=== PATIENT | male | born 1980 | race Caucasian/White ===

== ENCOUNTER 2017-07-09 09:12 | Inpatient (IN) | payer OTHER ==
[2017-07-09 11:47] VITALS: BMI 33.5
--- NOTE | 2017-07-09 14:20 | HP ---
CIWA Score - CIWA Score Nausea/Vomitin-Mild Nausea/No Vomiting Muscle Tremors: 4-Moderate,w/Arms Extend Anxiety: 3 Agitation: 2 Paroxysmal Sweats: 3 Orientation: 0-Oriented Tacttile Disturbances: 0-None Auditory Disturbances: 0-None Visual Disturbances: 0-None Headache: 3-Moderate CIWA-Ar Total Score: 16 Admission ROS S - HPI Chief Complaint: "I'm here to try to get myself together." Pt. is here to Detox from Alcohol. Allergies/Adverse Reactions: Allergies Allergy/AdvReac Type Severity Reaction Status Date / Time No Known Allergies Allergy Verified 07/09/17 12:28 History of Present Illness: Pt. is a 37 YO male here to Detox from Alcohol. Pt. also reports using Cannabis , Crack Cocaine, and K2 on a daily basis. Pt. has had 1 previous Detox admission at [facility] in 2008 and 1 previous Detox admission at [facility] ([place], [place] ) in 2009. Exam Limitations: No Limitations - Ebola screening Have you traveled outside of the country in the last 21 days: No Have you had contact with anyone from an Ebola affected area: No Have you been sick,other than usual withdrawal symptoms: No Do you have a fever: No - Review of Systems Constitutional: Chills, Diaphoresis, Fever, Loss of Appetite, Malaise EENT: reports: Nose Congestion, Sinus Pressure Respiratory: reports: Shortness of Breath, Productive cough Cardiac: reports: No Symptoms Reported GI: reports: Nausea, Vomiting : reports: No Symptoms Reported Musculoskeletal: reports: No Symptoms Reported Integumentary: reports: No Symptoms Reported Neuro: reports: Tremors Endocrine: reports: No Symptoms Reported Hematology: reports: No Symptoms Reported Psychiatric: reports: Judgement Intact, Mood/Affect Appropiate, Orientated x3, Depressed Other Systems: Reviewed and Negative Patient History - Patient Medical History Hx Anemia: No Hx Asthma: Yes (Uses Albuterol Inhaler.) Hx Chronic Obstructive Pulmonary Disease (COPD): No Hx Cancer: No Hx Cardiac Disorders: No Hx Congestive Heart Failure: No Hx Hypertension: No Hx Hypercholesterolemia: No Hx Pacemaker: No HX Cerebrovascular Accident: No Hx Seizures: No Hx Dementia: No Hx Diabetes: No Hx Gastrointestinal Disorders: No Hx Liver Disease: No Hx Genitourinary Disorders: No Hx Sexually Transmitted Disorders: No Hx Renal Disease (ESRD): No Hx Thyroid Disease: No Hx Human Immunodeficiency Virus (HIV): No (Last Tested: 03/2017: NEGATIVE.) Hx Hepatitis C: No (Never Tested. Pt. declines Testing this admission visit.) Hx Depression: Yes (No treatment in past.) Hx Suicide Attempt: Yes (cut right arm with a razor in 11/2015) Hx Bipolar Disorder: Yes (On meds.) Hx Schizophrenia: Yes (On meds.) Other Medical History: Declines. - Patient Surgical History Past Surgical History: No Hx Neurologic Surgery: No Hx Cataract Extraction: No Hx Cardiac Surgery: No Hx Lung Surgery: No Hx Breast Surgery: No Hx Breast Biopsy: No Hx Abdominal Surgery: No Hx Appendectomy: No Hx Cholecystectomy: No Hx Genitourinary Surgery: No Hx Section: No Hx Orthopedic Surgery: No Anesthesia Reaction: No - PPD History Previous Implant?: Yes Documented Results: Negative w/o proof PPD to be Administered?: Yes - Reproductive History Patient is a Female of Child Bearing Age (11 -55 yrs old): No (PATIENT IS MALE.) - Smoking Cessation Smoking history: Current every day smoker Have you smoked in the past 12 months: Yes Aproximately how many cigarettes per day: 20 Cigars Per Day: 0 Hx Chewing Tobacco Use: No Initiated information on smoking cessation: Yes 'Breaking Loose' booklet given: 07/09/17 (GIVEN ON UNIT.) - Substance & Tx. History Hx Alcohol Use: Yes Hx Substance Use: Yes Substance Use Type: Alcohol, Cocaine, Marijuana Hx Substance Use Treatment: Yes (Previous Detox admissions at [facility] ([place], [place] 2009; [facility], 2009.) - Substances Abused Crack Route: Smoking Frequency: Daily Amount used: $100 Age of first use: 23 Date of Last Use: 07/08/17 Alcohol-vodka/beer Route: Oral Frequency: Daily Amount used: 2 pts./1-2 6 pks. Age of first use: 16 Date of Last Use: 07/08/17 Marijuana Route: Smoking Frequency: Daily Amount used: $10 Age of first use: 13 Date of Last Use: 07/06/17 K2 Route: Smoking Frequency: Daily Amount used: $10 Age of first use: 35 Date of Last Use: 07/06/17 Family Disease History - Family Disease History Family Disease History: Respiratory: Mother (Asthma.), Other: Father (Arthritis. ) Admission Physical Exam [facility] - Vital Signs Vital Signs: Vital Signs - 24 hr 07/09/17 11:45 Temperature 97 F L Pulse Rate 79 Respiratory 20 Rate Blood Pressure 133/80 - Physical General Appearance: Yes: No Apparent Distress, Nourished, Appropriately Dressed , Tremorous, Anxious HEENTM: Yes: Hearing grossly Normal, Normocephalic, Normal Voice, [place], Pharynx Normal Respiratory: Yes: Chest Non-Tender, Lungs Clear, No Respiratory Distress, No Accessory Muscle Use Neck: Yes: No masses,lesions,Nodules, Supple, Trachea in good position Breast: Yes: Breast Exam Deferred Cardiology: Yes: Regular Rhythm, Regular Rate, S1, S2 Abdominal: Yes: Normal Bowel Sounds, Non Tender, Flat, Soft Genitourinary: Yes: Within Normal Limits Back: Yes: Normal Inspection Musculoskeletal: Yes: full range of Motion, Gait Steady Extremities: Yes: Normal Range of Motion, Non-Tender, Tremors Neurological: Yes: Fully Oriented, Alert, Normal Mood/Affect, Normal Response Integumentary: Yes: Normal Color, Dry, Warm Lymphatic: Yes: Within Normal Limits - Diagnostic (1) Alcohol dependence with uncomplicated withdrawal Current Visit: Yes Status: Acute (2) Cocaine dependence, uncomplicated Current Visit: Yes Status: Acute (3) Cannabis dependence, uncomplicated Current Visit: Yes Status: Acute (4) Nicotine dependence Current Visit: Yes Status: Chronic Qualifiers: Nicotine product type: cigarettes Substance use status: uncomplicated Qualified Code(s): F17.210 - Nicotine dependence, cigarettes, uncomplicated (5) History of bipolar disorder Current Visit: Yes Status: Chronic (6) History of schizophrenia Current Visit: Yes Status: Chronic (7) Asthma Current Visit: Yes Status: Chronic Qualifiers: Asthma severity: mild intermittent Asthma complication type: uncomplicated Qualified Code(s): J45.20 - Mild intermittent asthma, uncomplicated Cleared for Admission [facility] - Detox or Rehab [facility] Level of Care: Medically Managed Detox Regimen/Protocol: Librium [facility] Breath Alcohol Content Breath Alcohol Content: 0 Urine Drug Screen - Results Drug Screen Negative: No Urine Drug Screen Results: THC-Marijuana, RAGHAVENDRA-Cocaine
[2017-07-09] MEDS ORDERED: MENTHOL/PHENOL 1 EACH UD MM PRN (15:07)
[2017-07-09] MEDS ORDERED: guaiFENesin/D-METHORPHAN HB 10 ML UNIT-DOSE CUPS PO PRN (15:07)
[2017-07-09] MEDS ORDERED: hydrOXYzine PAMOATE 50 MG CAPSULE (FP) PO PRN (15:07)
[2017-07-09] MEDS ORDERED: LOPERAMIDE HCL 2 MG CAPSULE PO PRN (15:07)
[2017-07-09] MEDS ORDERED: MAGNESIUM CITRATE 300 ML BOTTLE PO PRN (15:07)
[2017-07-09] MEDS ORDERED: ACETAMINOPHEN 325 MG TABLET (FP) PO PRN (15:07)
[2017-07-09] MEDS ORDERED: NICOTINE POLACRILEX 2 MG GUM BUC PRN (15:07)
[2017-07-09] MEDS ORDERED: diphenhydrAMINE HCL 50 MG CAPSULE PO PRN (15:07)
[2017-07-09] MEDS ORDERED: MAG HYDROX/AL HYDROX/SIMETH 30 ML UNIT-DOSE CUP PO PRN (15:07)
[2017-07-09] MEDS ORDERED: IBUPROFEN 400 MG TABLET (FP) PO PRN (15:07)
[2017-07-09] MEDS ORDERED: P-EPHED 60MG/TRIPROLIDI 2.5MG TABLET PO PRN (15:07)
[2017-07-09] MEDS ORDERED: chlordiazePOXIDE HCL 25 MG CAPSULE PO PRN (15:07)
[2017-07-09] MEDS ORDERED: MAGNESIUM HYDROX 2400MG/30ML ORAL SUSPENSION 30 ML CUP PO PRN (15:07)
[2017-07-09] MEDS ORDERED: ALBUTEROL SO4 2.5/IPRATROPIUM 0.5 INH SOL 3 ML VIAL.NEB. NEB PRN (15:12)
[2017-07-09] MEDS ORDERED: chlordiazePOXIDE HCL 25 MG CAPSULE PO ONE (15:18)
[2017-07-09] MEDS ORDERED: ALBUTEROL SO4 2.5/IPRATROPIUM 0.5 INH SOL 3 ML VIAL.NEB. NEB ONE (15:18)
[2017-07-09] MEDS: chlordiazePOXIDE HCL 25 MG CAPSULE PO SCH ×2 (17:09→22:31)
[2017-07-09] MEDS: NICOTINE 21 MG/24 HOURS TOPICAL PATCH TD SCH (17:10)
[2017-07-09 17:26] LABS: URINE APPEARANCE CLOUDY; URINE BILIRUBIN NEGATIVE (NEGATIVE); URINE BLOOD NEGATIVE (NEGATIVE); URINE COLOR YELLOW; URINE GLUCOSE (UA) NEGATIVE (NEGATIVE); URINE KETONE NEGATIVE (NEGATIVE); URINE LEUK ESTERASE NEGATIVE (NEGATIVE); URINE NITRITE NEGATIVE (NEGATIVE); URINE PROTEIN NEGATIVE (NEGATIVE); URINE UROBILINOGEN NEGATIVE mg/dL (0.2-1.0)
[2017-07-09] MEDS: THIAMINE HCL 100 MG TABLET (FP) PO SCH (22:31)
[2017-07-10] MEDS: chlordiazePOXIDE HCL 25 MG CAPSULE PO SCH ×4 (05:49→22:18)
[2017-07-10] MEDS: PRENATAL VITAMINS W/ FOLIC ACID TABLET (FP) PO SCH (10:37)
[2017-07-10] MEDS: ALBUTEROL SO4 6.7 GM HFA INHALER IH PRN (10:38)
[2017-07-10] MEDS: NICOTINE 21 MG/24 HOURS TOPICAL PATCH TD SCH (10:38)
[2017-07-10 10:39] LABS: MCH 30.2 pg (25.7-33.7); MCHC 33.2 g/dl (32.0-35.9); MEAN CELL VOLUME 90.8 fl (80-96); MEAN PLT VOLUME 9.1 fl (7.5-11.1); PLATELET COUNT 334 K/MM3 (134-434); RDW 13.9 % (11.9-15.9); WHITE BLOOD COUNT 11.7 K/mm3 (4.0-10.0)
[2017-07-10 10:51] LABS: ALBUMIN 3.5 g/dl (3.4-5.0); ANION GAP 9 (8-16); CALCIUM 8.2 mg/dL (8.5-10.1); CO2 24 mmol/L (21-32); CREATININE 0.6 mg/dL (0.7-1.3); GLUCOSE,RANDOM 88 mg/dL (74-106); SGOT/AST 16 U/L (15-37); SGPT/ALT 22 U/L (12-78)
[2017-07-10 10:53] LABS: ALK PHOS 72 U/L (45-117); BILIRUBIN,TOTAL 0.2 mg/dL (0.2-1.0); TOT PROT 6.9 g/dl (6.4-8.2)
[2017-07-10] MEDS ORDERED: POTASSIUM CHLORIDE TABS 20 MEQ TABLET.ER (FP) PO ONE (11:31)
--- NOTE | 2017-07-10 11:41 | PN ---
S CIWA - CIWA Score Nausea/Vomitin Muscle Tremors: 2 Anxiety: 2 Agitation: 2 Paroxysmal Sweats: 2 Orientation: 0-Oriented Tacttile Disturbances: 1-Very Mild Itch/Numbness Auditory Disturbances: 1-Very Mild Visual Disturbances: 2-Mild Sensitivity Headache: 2-Mild CIWA-Ar Total Score: 16 S Progress Note (SOAP) Subjective: Interrupted sleep, muscle aches Objective: 07/10/17 11:40 Vital Signs - 8 hr 07/10/17 07/10/17 06:32 10:51 Temperature 97 F L 97.9 F Pulse Rate 73 82 Respiratory 18 18 Rate Blood Pressure 102/56 121/77 Laboratory Last Values WBC 11.7 K/mm3 (4.0-10.0) H 07/10/17 06:08 RBC 4.23 M/mm3 (4.00-5.60) 07/10/17 06:08 Hgb 12.7 GM/dL (11.7-16.9) 07/10/17 06:08 Hct 38.4 % (35.4-49) 07/10/17 06:08 MCV 90.8 fl (80-96) 07/10/17 06:08 MCH 30.2 pg (25.7-33.7) 07/10/17 06:08 MCHC 33.2 g/dl (32.0-35.9) 07/10/17 06:08 RDW 13.9 % (11.9-15.9) 07/10/17 06:08 Plt Count 334 K/MM3 (134-434) 07/10/17 06:08 MPV 9.1 fl (7.5-11.1) 07/10/17 06:08 Sodium 139 mmol/L (136-145) 07/10/17 06:08 Potassium 3.4 mmol/L (3.5-5.1) L 07/10/17 06:08 Chloride 106 mmol/L (98-107) 07/10/17 06:08 Carbon Dioxide 24 mmol/L (21-32) 07/10/17 06:08 Anion Gap 9 (8-16) 07/10/17 06:08 BUN 8 mg/dL (7-18) 07/10/17 06:08 Creatinine 0.6 mg/dL (0.7-1.3) L 07/10/17 06:08 Creat Clearance w eGFR > 60 (>60) 07/10/17 06:08 Random Glucose 88 mg/dL (74-106) 07/10/17 06:08 Calcium 8.2 mg/dL (8.5-10.1) L 07/10/17 06:08 Total Bilirubin 0.2 mg/dL (0.2-1.0) 07/10/17 06:08 AST 16 U/L (15-37) 07/10/17 06:08 ALT 22 U/L (12-78) 07/10/17 06:08 Alkaline Phosphatase 72 U/L (45-117) 07/10/17 06:08 Total Protein 6.9 g/dl (6.4-8.2) 07/10/17 06:08 Albumin 3.5 g/dl (3.4-5.0) 07/10/17 06:08 Urine Color Yellow 07/09/17 15:00 Urine Appearance Cloudy 07/09/17 15:00 Urine pH 7.0 (5.0-8.0) 07/09/17 15:00 Ur Specific [place] 1.020 (1.005-1.025) 07/09/17 15:00 Urine Protein Negative (NEGATIVE) 07/09/17 15:00 Urine Glucose (UA) Negative (NEGATIVE) 07/09/17 15:00 Urine Ketones Negative (NEGATIVE) 07/09/17 15:00 Urine Blood Negative (NEGATIVE) 07/09/17 15:00 Urine Nitrite Negative (NEGATIVE) 07/09/17 15:00 Urine Bilirubin Negative (NEGATIVE) 07/09/17 15:00 Urine Urobilinogen Negative mg/dL (0.2-1.0) 07/09/17 15:00 labs noted, mild hypokalemia Assessment: 07/10/17 11:41 withdrawal sx Plan: continue detox k-dur 20meq x1 dose
--- NOTE | 2017-07-10 12:03 | CONSULT ---
[facility] Psychiatric Consult - Data Date of interview: 07/10/17 Admission source: Self-referred Identifying data: Mr Matthew is a 37 years old single male, unemployedon SSI, homeless seeking detox treatment foralcohol an cocaine Substance Abuse History: Reports using alcohol, cocaine, marijuana and k2. He started drinking alcohol at age 16, consumes 2 pints of vodka & 1-2x 6pk of beer daily. Last drink on 07/08/17. He started smoking crack cocaine at age 23, consumes $100 woth daily. Last used on 07/08/17. He started smoking marijuana at age 13 and K2 at age 35, consumes $10 worth of each marijuana & K2 daily. Last smoked them on 07/06/17 Medical History: Significant for Asthma. Smokes cigarettes 1ppd Psychiatric History: Patient is a poor historian whose history does not match some record. Reports that he was diagnosed with Schizoaffective Disorder at age 14 and has had multiple psychiatric hospitalizations to various institutions notably [facility], [place] and more recently in 2014 to [facility] for . Reports non-compiance to OPD care. Claims that he last received OPD care at [facility] and last took medications 3 months ago. According to Pharmacy claims, He filled scripts for Zyprexa 20 mg po HS on 02/09/17, Cogentin 2 mg po BID, Seroquel 200 mg BID & 400 mg HS, Depakote 1000 mg daily & 1500 mg HS and [place] 300 mg tab: 2.5 tab daily & 2 tab HS on 06/02/17. Reports one SA by cutting right forearm with a razor while incarcerated at [facility].At presents, reports feeling well . Denies experiencing psychotic, manic or depressive symptoms as well as S/H ideations. Physical/Sexual Abuse/Trauma History: Denies history of emotional, physical or sexual abuse as well as DV relationship Additional Comment: Reports history of 5 previous misdemeanor arrests. No probation at present Mental Status Exam - Mental Status Exam Alert and Oriented to: Time, Place, Person Cognitive Function: Fair Patient Appearance: Well Groomed Mood: Hopeful, Euthymic Affect: Appropriate Patient Behavior: Cooperative Speech Pattern: Clear Voice Loudness: Normal Thought Process: Intact, Goal Oriented Thought Disorder: Not Present Hallucinations: Denies Suicidal Ideation: Denies Homicidal Ideation: Denies Insight/Judgement: Poor Sleep: Well Appetite: Good Muscle strength/Tone: Normal Gait/Station: Normal Psychiatric Findings - Problem List ([place] 1, 2,3) (1) Schizoaffective disorder Current Visit: Yes Status: Acute (2) Alcohol dependence with uncomplicated withdrawal Current Visit: Yes Status: Acute (3) Cocaine dependence, uncomplicated Current Visit: Yes Status: Acute (4) Cannabis dependence, uncomplicated Current Visit: Yes Status: Acute (5) Nicotine dependence Current Visit: Yes Status: Chronic Qualifiers: Nicotine product type: cigarettes Substance use status: uncomplicated Qualified Code(s): F17.210 - Nicotine dependence, cigarettes, uncomplicated (6) Asthma Current Visit: Yes Status: Chronic Qualifiers: Asthma severity: mild intermittent Asthma complication type: uncomplicated Qualified Code(s): J45.20 - Mild intermittent asthma, uncomplicated - Initial Treatment Plan Initial Treatment Plan: 1) Start Haldol 5 mg po bID and Cogentin 2 mg po BID. 2 ) Continue inpatient detoxification while monitoring for psychotic decompensation
[2017-07-10 12:30] LABS: HIV 1 & 2 AB NEGATIVE; HIV 1 AGp24 NEGATIVE
[2017-07-10] MEDS ORDERED: HALOPERIDOL 5 MG TABLET (FP) PO PRN (12:32)
[2017-07-10] MEDS ORDERED: BENZTROPINE MESYLATE 2 MG TABLET PO SCH (22:00)
[2017-07-10] MEDS: THIAMINE HCL 100 MG TABLET (FP) PO SCH (22:18)
[2017-07-10] MEDS: BENZTROPINE MESYLATE 1 MG TABLET (FP) PO SCH (22:18)
[2017-07-11] MEDS: chlordiazePOXIDE HCL 25 MG CAPSULE PO SCH ×2 (05:52→10:22)
[2017-07-11] MEDS: BENZTROPINE MESYLATE 1 MG TABLET (FP) PO SCH (10:22)
[2017-07-11] MEDS: PRENATAL VITAMINS W/ FOLIC ACID TABLET (FP) PO SCH (10:22)
[2017-07-11] MEDS: NICOTINE 21 MG/24 HOURS TOPICAL PATCH TD SCH (10:23)
[2017-07-11] MEDS: ALBUTEROL SO4 6.7 GM HFA INHALER IH PRN (10:24)
[2017-07-11 13:35] VITALS: BP 108/64; PULSE 87; TEMP 98.2
--- NOTE | 2017-07-11 14:57 | DS ---
[facility] Detox Discharge Summary Admission Date: 07/09/17 Discharge Date: 07/11/17 - History Present History: Alcohol Dependence, Cannabis Dependence, Cocaine Dependence Pertinent Past History: Asthma - Physical Exam Results Vital Signs: Vital Signs Temperature 98.2 F 07/11/17 13:35 Pulse Rate 87 07/11/17 13:35 Respiratory Rate 18 07/11/17 13:35 Blood Pressure 108/64 07/11/17 13:35 O2 Sat by Pulse Oximetry (%) Pertinent Admission Physical Exam Findings: Withdrawal sx. Laboratory Tests 07/09/17 07/10/17 07/10/17 15:00 06:08 06:08 WBC 11.7 H RBC 4.23 Hgb 12.7 Hct 38.4 MCV 90.8 MCH 30.2 MCHC 33.2 RDW 13.9 Plt Count 334 MPV 9.1 Sodium 139 Potassium 3.4 L Chloride 106 Carbon Dioxide 24 Anion Gap 9 BUN 8 Creatinine 0.6 L Creat Clearance w eGFR > 60 Random Glucose 88 Calcium 8.2 L Total Bilirubin 0.2 AST 16 ALT 22 Alkaline Phosphatase 72 Total Protein 6.9 Albumin 3.5 Urine Color Yellow Urine Appearance Cloudy Urine pH 7.0 Ur Specific [place] 1.020 Urine Protein Negative Urine Glucose (UA) Negative Urine Ketones Negative Urine Blood Negative Urine Nitrite Negative Urine Bilirubin Negative Urine Urobilinogen Negative Valproic Acid [place] RPR Titer HIV 1&2 Antibody Screen HIV P24 Antigen 07/10/17 07/10/17 07/10/17 06:08 06:08 06:08 WBC RBC Hgb Hct MCV MCH MCHC RDW Plt Count MPV Sodium Potassium Chloride Carbon Dioxide Anion Gap BUN Creatinine Creat Clearance w eGFR Random Glucose Calcium Total Bilirubin AST ALT Alkaline Phosphatase Total Protein Albumin Urine Color Urine Appearance Urine pH Ur Specific [place] Urine Protein Urine Glucose (UA) Urine Ketones Urine Blood Urine Nitrite Urine Bilirubin Urine Urobilinogen Valproic Acid 6.199 L [place] 0.1 L RPR Titer Nonreactive HIV 1&2 Antibody Screen HIV P24 Antigen 07/10/17 08:20 WBC RBC Hgb Hct MCV MCH MCHC RDW Plt Count MPV Sodium Potassium Chloride Carbon Dioxide Anion Gap BUN Creatinine Creat Clearance w eGFR Random Glucose Calcium Total Bilirubin AST ALT Alkaline Phosphatase Total Protein Albumin Urine Color Urine Appearance Urine pH Ur Specific [place] Urine Protein Urine Glucose (UA) Urine Ketones Urine Blood Urine Nitrite Urine Bilirubin Urine Urobilinogen Valproic Acid [place] RPR Titer HIV 1&2 Antibody Screen Negative HIV P24 Antigen Negative labs noted,k-dur in progress - Treatment Patient has Accepted a Rehab Referral to: [facility] meetings - Medication Discharge Medications: Ambulatory Orders Albuterol Sulfate Inhaler - [Ventolin Hfa Inhaler -] 2 inh PO Q4H PRN 07/09/17 Benztropine Mesylate [Cogentin -] 0.5 mg PO BID 07/09/17 Divalproex [Depakote -] 250 mg PO BID 07/09/17 Haloperidol [Haldol -] 0.5 mg PO BID 07/09/17 [place] Carbonate [Eskalith -] 600 mg PO HS 07/09/17 [place] Carbonate [Eskalith -] 700 mg PO AM 07/09/17 Benztropine Mesylate [Cogentin -] 2 mg PO BID #60 tab 07/10/17 Haloperidol [Haldol -] 5 mg PO BID #60 tablet 07/10/17 - Diagnosis (1) Alcohol dependence with uncomplicated withdrawal Status: Acute (2) Cannabis dependence, uncomplicated Status: Acute (3) Cocaine dependence, uncomplicated Status: Acute (4) Schizoaffective disorder Status: Acute (5) Asthma Status: Chronic Qualifiers: Asthma severity: mild intermittent Asthma complication type: uncomplicated Qualified Code(s): J45.20 - Mild intermittent asthma, uncomplicated (6) Nicotine dependence Status: Acute Qualifiers: Nicotine product type: cigarettes Substance use status: uncomplicated Qualified Code(s): F17.210 - Nicotine dependence, cigarettes, uncomplicated - AMA Did Patient Leave Against Medical Advice: Yes
[2017-07-11] MEDS ORDERED: chlordiazePOXIDE 5 MG CAPSULE PO SCH (17:00)
[2017-07-12] MEDS ORDERED: chlordiazePOXIDE HCL 10 MG CAPSULE PO SCH (17:00)
--- NOTE | 2017-07-12 17:03 | EKG ---
Test Reason : Blood Pressure : / mmHG Vent. Rate : 073 BPM Atrial Rate : 073 BPM P-R Int : 130 ms QRS Dur : 088 ms QT Int : 416 ms P-R-T Axes : 046 053 041 degrees QTc Int : 458 ms NORMAL SINUS RHYTHM NORMAL ECG NO PREVIOUS ECGS AVAILABLE Confirmed by JASWINDER VANG MD ([id number]) on 07/12/2017 5:03:05 PM Referred By: Confirmed By:JASWINDER VANG MD
== END 2017-07-11 13:40 | disposition left against medical advice (07) | DRG 894 ==
LOC: YASAS 09:12 → Y6N 14:04
PROVIDERS: ADMIT Internal Medicine; ATTEND Internal Medicine
PROC: HZ2ZZZZ Detoxification Services for Substance Abuse Treatment (ICD-10-PCS; principal; 2017-07-09)
DX: F10.230 Alcohol dependence with withdrawal, uncomplicated (principal); F14.20 Cocaine dependence, uncomplicated; F17.210 Nicotine dependence, cigarettes, uncomplicated; F25.9 Schizoaffective disorder, unspecified; F31.9 Bipolar disorder, unspecified; J45.20 Mild intermittent asthma, uncomplicated
CPT/HCPCS: 36415; 80053; 80164; 80178; 81003; 85027; 86593; 87389; 93005; 93010